=== PATIENT | male | born 1965 | race Hispanic/Latino ===

== ENCOUNTER 2021-03-23 16:40 | Emergency (ER) | payer SELFPAY ==
[~2021-03-23] VITALS: Ht 162.6 cm; Wt 77.1 kg
[2021-03-23 17:30] LABS: APPEARANCE,URINE Clear (CLEAR); BILIRUBIN,URINE Negative (NEGATIVE); COLOR,URINE Yellow (YELLOW); GLUCOSE, URINE (UA) 250 mg/dL (NEGATIVE); KETONES,URINE Negative (NEGATIVE); LEUKOCYTE ESTERASE ,URINE Negative (NEGATIVE); NITRATE,URINE Negative (NEGATIVE); OCCULT BLOOD,URINE Negative (NEGATIVE); PROTEIN,URINE POS 2+ mg/dL (NEGATIVE)
[2021-03-23] MEDS ORDERED: PANTOPRAZOLE 40 MG/VIAL IVP ONE (17:30)
[2021-03-23] MEDS ORDERED: 0.9%NACL 1000ML 1,000 ML IV ONE (17:30)
[2021-03-23] MEDS ORDERED: ONDANSETRON 4MG INJ IVP ONE (17:30)
[2021-03-23 17:31] LABS: BASOPHILS % (AUTO) 0.6 % (0.0-5.0); EOSINOPHILS % (AUTO) 1.1 % (0.0-8.0); HEMATOCRIT 41.1 % (42-54); LYMPHOCYTES % (AUTO) 10.6 % (21.0-51.0); MEAN CORPUSCULAR HEMOGLOBIN 30.2 pg (27.0-33.0); MEAN CORPUSCULAR HGB CONC 35.5 g/dL (32.0-36.0); MEAN CORPUSCULAR VOLUME 85.1 fL (79-99); NEUTROPHILS % (AUTO) 77.1 % (40.0-77.0); PLATELET COUNT (AUTO) 172 K/uL (130-400); RED BLOOD CELL COUNT(AUTO) 4.83 MIL/uL (4.50-6.20); RED CELL DISTRIBUTION WIDTH 12.2 % (11.0-15.5); WHITE BLOOD COUNT (AUTO) 10.6 K/uL (4.8-10.8)
[2021-03-23 17:44] LABS: ALBUMIN 3.9 g/dL (3.5-5.0); BILIRUBIN,TOTAL 1.1 mg/dL (0.2-1.0); CREATININE 1.2 mg/dL (0.5-1.5)
[2021-03-23 17:50] LABS: BACTERIA,URINE None Seen /HPF (None Seen); RBC,URINE None Seen /HPF (0-1); SQUAMOUS EPITHELIAL CELL,UR 0-2 /HPF (0-2); WBC,URINE None Seen /HPF (0-1)
[2021-03-23] MEDS ORDERED: POTASSIUM BICARB/CIT AC 25 MEQ TABLET.EFF PO ONE (18:30)
[2021-03-23] MEDS ORDERED: METO5 PO (18:40)
[2021-03-23] MEDS ORDERED: ONDA4TAB10 PO (18:40)
[2021-03-23 18:57] VITALS: BP 168/88
== END 2021-03-23 18:59 | disposition home or self-care (01) ==
LOC: EDH 16:40
DX: K29.20 Alcoholic gastritis without bleeding (principal); E87.6 Hypokalemia; E86.9 Volume depletion, unspecified; E11.9 Type 2 diabetes mellitus without complications; I10 Essential (primary) hypertension; E78.00 Pure hypercholesterolemia, unspecified; Z79.899 Other long term (current) drug therapy; Z86.73 Personal history of transient ischemic attack (TIA), and cerebral infarction without residual deficits
CPT/HCPCS: 36415; 74018; 80053; 81001; 83690; 84484; 85025; 93005; 96361; 96374; 96375; 99285; C9113; J2405; J7030

== ENCOUNTER 2021-03-25 18:44 | Emergency (ER) | payer SELFPAY ==
[~2021-03-25] VITALS: Ht 162.6 cm; Wt 77.1 kg
[~2021-03-25 18:44] MED LIST: METO5 PO; ONDA4TAB10 PO
[2021-03-25 18:45] VITALS: BP 138/85
[2021-03-26] MEDS ORDERED: POTA20PA32 PO (11:44)
[2021-03-26] MEDS ORDERED: PANT40TA PO (11:44)
[2021-03-26] MEDS ORDERED: PROM12.513 PO (11:44)
== END 2021-03-25 20:26 | disposition left against medical advice (07) ==
LOC: EDH 18:44
DX: R11.10 Vomiting, unspecified (principal); Z53.21 Procedure and treatment not carried out due to patient leaving prior to being seen by health care provider

== ENCOUNTER 2021-03-26 08:45 | Emergency (ER) | payer SELFPAY ==
[~2021-03-26] VITALS: Ht 162.6 cm; Wt 79.4 kg
[2021-03-26] MEDS ORDERED: 0.9%NACL 1000ML 1,000 ML IV ONE ×2 (09:30→11:00)
[2021-03-26] MEDS ORDERED: ONDANSETRON 4MG INJ IVP ONE (09:30)
[2021-03-26] MEDS ORDERED: METOCLOPRAMIDE 10 MG/2 ML VIAL IVP ONE (09:30)
[2021-03-26 09:38] LABS: BASOPHILS % (AUTO) 0.5 % (0.0-5.0); EOSINOPHILS % (AUTO) 1.7 % (0.0-8.0); HEMATOCRIT 39.6 % (42-54); LYMPHOCYTES % (AUTO) 14.9 % (21.0-51.0); MEAN CORPUSCULAR HEMOGLOBIN 30.4 pg (27.0-33.0); MEAN CORPUSCULAR HGB CONC 35.4 g/dL (32.0-36.0); MEAN CORPUSCULAR VOLUME 86.1 fL (79-99); MONOCYTES % (AUTO) 8.6 % (3.0-13.0); NEUTROPHILS % (AUTO) 73.9 % (40.0-77.0); PLATELET COUNT (AUTO) 197 K/uL (130-400); RED CELL DISTRIBUTION WIDTH 12.1 % (11.0-15.5); WHITE BLOOD COUNT (AUTO) 9.9 K/uL (4.8-10.8)
[2021-03-26 09:50] LABS: ALBUMIN 3.5 g/dL (3.5-5.0); CREATININE 1.1 mg/dL (0.5-1.5)
[2021-03-26 09:55] LABS: BILIRUBIN,TOTAL 1.1 mg/dL (0.2-1.0); TOTAL PROTEIN, SERUM 7.1 g/dL (6.0-8.3)
[2021-03-26 09:57] LABS: POTASSIUM 2.9 mmol/L (3.5-5.1)
[2021-03-26] MEDS ORDERED: POTASSIUM BICARB/CIT AC 25 MEQ TABLET.EFF PO SCH (10:30)
[2021-03-26 10:57] LABS: APPEARANCE,URINE Clear (CLEAR); BILIRUBIN,URINE Negative (NEGATIVE); COLOR,URINE Yellow (YELLOW); GLUCOSE, URINE (UA) Negative (NEGATIVE); KETONES,URINE Negative (NEGATIVE); LEUKOCYTE ESTERASE ,URINE Trace (NEGATIVE); NITRATE,URINE Negative (NEGATIVE); OCCULT BLOOD,URINE Negative (NEGATIVE); PH,URINE 7.5 (5.0-8.0); PROTEIN,URINE POS 1+ mg/dL (NEGATIVE)
[2021-03-26 11:04] LABS: AMPHET/METH SCREEN,URINE NEGATIVE (NEGATIVE); BARBITURATE SCREEN, URINE NEGATIVE (NEGATIVE); BENZODIAZEPINES SCREEN,URINE NEGATIVE (NEGATIVE); CANNABINOID SCREEN,URINE NEGATIVE (NEGATIVE); COCAINE SCREEN,URINE NEGATIVE (NEGATIVE); OPIATE SCREEN,URINE NEGATIVE (NEGATIVE); PHENCYCLIDINE SCREEN,URINE NEGATIVE (NEGATIVE)
[2021-03-26 11:25] LABS: BACTERIA,URINE None Seen /HPF (None Seen); RBC,URINE 0-1 /HPF (0-1); SQUAMOUS EPITHELIAL CELL,UR 0-2 /HPF (0-2); WBC,URINE 0-1 /HPF (0-1)
[2021-03-26] MEDS ORDERED: PANT40TA PO (11:44)
[2021-03-26] MEDS ORDERED: PROM12.513 PO (11:44)
[2021-03-26] MEDS ORDERED: POTA20PA32 PO (11:44)
[2021-03-26 11:59] VITALS: BP 138/76
== END 2021-03-26 12:01 | disposition home or self-care (01) ==
LOC: EDH 08:45
DX: E87.6 Hypokalemia (principal); E86.9 Volume depletion, unspecified; R06.6 Hiccough; E11.9 Type 2 diabetes mellitus without complications; E78.00 Pure hypercholesterolemia, unspecified; I10 Essential (primary) hypertension; F10.20 Alcohol dependence, uncomplicated; Z86.73 Personal history of transient ischemic attack (TIA), and cerebral infarction without residual deficits
CPT/HCPCS: 36415; 80053; 80305; 81001; 83690; 84484; 85025; 93005; 96361; 96374; 96375; 99284; J2405; J2765; J7030

== ENCOUNTER 2024-05-03 15:08 | Emergency (ER) | payer OTHER ==
[~2024-05-03] VITALS: Ht 162.6 cm; Wt 81.6 kg
[~2024-05-03 15:08] MED LIST changes: +ONDA-243 PO; -ONDA4TAB10 PO; +PANT40TA PO; +POTA20PA32 PO; +PROM12.513 PO
--- NOTE | 2024-05-03 15:15 | ERN ---
ED Note History of Present Illness Stated Complaint: DYSURIA Chief Complaint: Painful Urination Time Seen by MD: 15:10 Dictation: PATIENT IS A 58-YEAR-OLD MALE HERE FROM [facility] WITH COMPLAINTS OF HAVING DYSURIA FOR ONE WEEK. HE STATES HE IS HAVING NO FEVER NO CHILLS NO NAUSEA VOMITING NO FLANK PAIN. DENIES ANY HISTORY OF PROSTATE ENLARGEMENT UTI OR STONES. HE STATES HE IS HERE VISITING A MOTHER HAS NO LOCAL DOCTOR [place]. Allergies: Coded Allergies: No Known Drug Allergies (Unverified Allergy, Unknown, 03/23/21) Home Meds Active Scripts Promethazine HCl (Promethazine HCl) 12.5 Mg Tablet, 12.5 MG PO TIDP, #20 TAB 0 Refills Prov:BELLA DOMINGO MD 03/26/21 Pantoprazole Sodium (Protonix) 40 Mg Tablet.dr, 40 MG PO DAILY, #10 TAB 0 Refills Prov:BELLA DOMINGO MD 03/26/21 Potassium Chloride (Potassium Chloride) 20 Meq Packet, 20 MEQ PO DAILY, #10 PKT 0 Refills Prov:BELLA DOMINGO MD 03/26/21 Metoclopramide HCl (Reglan) 5 Mg Tab, 5 MG PO TIDP PRN for ABDOMINAL PAIN, #20 TAB 0 Refills Prov:SARAI CARRANZA MD 03/23/21 Ondansetron (Ondansetron Odt) 4 Mg Tab.rapdis, 4 MG PO TIDP PRN for NAUSEA/VOMITING, #15 TAB 0 Refills Prov:SARAI CARRANZA MD 03/23/21 Past Medical History Past Medical History: Alcoholism, Diabetes-Type II, High Cholesterol, Hypertension, Stroke, Other Additional Past Medical Hx: STROKE Surgical History: Other Surgical History Other: HX OF COLOSTOMY. COLON RESECTION Social History: Other RN Note Reviewed/Agreed w/PFSH: Yes Review of System Dictation CONSTITUTIONAL: NEGATIVE EXCEPT FOR HPI HEAD/FACE: NEGATIVE EXCEPT FOR HPI EENT: NEGATIVE EXCEPT FOR HPI RESPIRATORY: NEGATIVE EXCEPT FOR HPI GASTROINTESTINAL/ABDOMINAL: NEGATIVE EXCEPT FOR HPI GENITOURINARY: NEGATIVE EXCEPT FOR HPI DYSURIA MUSCULOSKELETAL: NEGATIVE EXCEPT FOR HPI INTEGUMENTARY: NEGATIVE EXCEPT FOR HPI NEUROLOGICAL/PSYCH: NEGATIVE EXCEPT FOR HPI HEMATOLOGIC/LYMPHATIC: NEGATIVE EXCEPT FOR HPI ALL SYSTEMS NEGATIVE, EXCEPT NOTED ABOVE. 13 POINT REVIEW OF SYSTEMS ASSESSED AND ALL NEGATIVE EXCEPT FOR ABOVE. Initial Vital Sign VS Vital Signs Date Time Temp Pulse Resp B/P (MAP) Pulse Ox O2 Delivery O2 Flow Rate FiO2 05/03/24 15:09 97.9 62 16 126/69 97 Room Air 0 05/03/24 15:52 21 Physical Exam Dictation VITAL SIGNS REVIEWED GENERAL APPEARANCE: ALERT, ORIENTED X 3, MILD ACUTE DISTRESS, WELL DEVELOPED, NOURISHED. HEAD AND FACE: NON-TRAUMATIC. EYES: PERRL, PINK CONJUNCTIVAS, EYELID NO TRAUMA, ANTERIOR CHAMBER WITH ARCUS SENILIS. EARS: PINNAS INTACT AND NO SIGNS OF TRAUMA OR ERYTHEMA EAR CANALS CLEAR AND NO DISCHARGE TM NO ERYTHEMA NOSE: NO DISCHARGE, NO BLEEDING. OROPHARYNX: MOUTH NORMAL, TONGUE PINK, PHARYNX CLEAR,NO ERYTHEMA, TONSILS NO EXUDATES, NO ABSCESSES NOTED, MUCOUS MEMBRANE MOIST NECK: SUPPLE, NON-TENDER, NO THYROMEGALY, NO MASSES, NO JVD, NO BRUITS BREAST:DEFERRED CHEST:NO TENDERNESS, NO CREPITUS, NO PARADOXICAL MOVEMENT, NO RETRACTIONS LUNGS:CLEAR, WELL-VENTILATED, SYMMETRIC, NO RALES, NO WHEEZING, NO RHONCHI, NO STRIDOR, GOOD BREATH SOUNDS BILATERALLY HEART: REGULAR RATE, REGULAR RHYTHM, NO MURMUR, NO GALLOPS VASCULAR: NO PERIPHERAL EDEMA, ABDOMEN: SOFT, POSITIVE BOWEL SOUNDS, NONDISTENDED, NO GUARDING, NONTENDER, NO REBOUND, NO MASSES NO HEPATOMEGALY, NO SPLENOMEGALY, NO BACA'S SIGN, NO HERNIAS. NEGATIVE CVAT RECTAL: DEFERRED GENITAL: DEFERRED NEUROLOGICAL: NORMAL SPEECH, MOTOR FUNCTION INTACT, SENSORY FUNCTION INTACT MUSCULOSKELETAL: NECK NONTENDER, FULL RANGE OF MOTION, BACK NONTENDER, FULL RANGE OF MOTION, EXTREMITIES: NONTENDER, FULL RANGE OF MOTION SKIN: COLOR PINK, DRY, NO TURGOR, NO RASH, NO LACERATIONS, NO ABRASIONS, NO CONTUSIONS. LYMPHATIC: DEFERRED Results (Laboratory/Radiology) Laboratory/Radiology Laboratory Tests Test 05/03/24 15:19 Urine Color LIGHT-YELLOW (YELLOW) Urine Appearance CLEAR (CLEAR) Urine pH 6.0 (5.0-8.0) Urine Specific [place] 1.008 (1.001-1.031) Urine Protein 10 mg/dL (NEGATIVE) H Urine Glucose (UA) NEGATIVE mg/dL (NEGATIVE) Urine Ketones NEGATIVE mg/dL (NEGATIVE) Urine Occult Blood NEGATIVE (NEGATIVE) Urine Nitrate NEGATIVE (NEGATIVE) Urine Bilirubin NEGATIVE mg/dL (NEGATIVE) Urine Urobilinogen 0.2 mg/dL (0.2-1.0) Urine Leukocyte Esterase NEGATIVE Terry/uL Urine RBC None /HPF (0-1) Urine WBC 0-1 /HPF (0-1) Urine Bacteria None /HPF (None Seen) Labs Reviewed?: Yes ED Course ED Course Orders Procedure Category Date Status Time Urinalysis Profile LAB 05/03/24 Complete 15:12 Phenazopyridine Hcl PHA 05/03/24 Complete 200 Mg Tab (Pyridium 15:30 Ibuprofen 600 Mg PHA 05/03/24 Complete Tablet (Motrin) 15:30 Current Medications Medications (Trade) Dose Ordered Sig/Radha Route PRN Reason Start Time Stop Time Status Last Admin Dose Admin Ibuprofen (moTRIN) 600 mg ONCE ONCE PO 05/03/24 15:30 05/03/24 15:31 DC 05/03/24 15:37 Phenazopyridine HCl (PYRIdium HCL 200 MG TAB) 200 mg ONCE ONCE PO 05/03/24 15:30 05/03/24 15:31 DC 05/03/24 15:37 Vital Signs Date Time Temp Pulse Resp B/P (MAP) Pulse Ox O2 Delivery O2 Flow Rate FiO2 05/03/24 15:52 97.9 62 16 126/69 97 Room Air* 0 21 05/03/24 15:09 97.9 62 16 126/69 97 Room Air 0 SIXTEEN 10, NO PAIN AT THIS TIME. PATIENT DISCHARGED HOME WITH DYSURIA TOLD TO SEE HIS PRIMARY CARE DOCTOR IN [place]. Medical Decision Making MDM MEDICAL DISCHARGE MAKING BASED ON URINALYSIS. PATIENT DISCHARGED HOME WITH IBUPROFEN AND PYRIDIUM GIVEN A LIST OF LOCAL PRIMARY CARE DOCTORS FOLLOW UP IN THE NEXT 1-2 DAYS OR SEE HIS DOCTOR IN [facility] DX & DISP Disposition: Discharge Departure Impression: Primary Impression: Dysuria Condition: Stable Scripts Ibuprofen (Ibuprofen 800 mg Tab) 800 Mg Tab 800 MG PO Q8H PRN for fever or pain, #30 TAB 0 Refills Prov: JS VALDEZ [employer] 05/03/24 Phenazopyridine HCl (Pyridium) 200 Mg Tablet 1 TAB PO TID for urinary discomfort for 3 Days, #9 TAB 0 Refills Prov: JS VALDEZ [employer] 05/03/24 Additional Instructions: FOLLOW-UP WITH PRIMARY CARE PROVIDER IN 1 TO 2 DAYS. TAKE MEDICATIONS DIRECTED HERE IN THE EMERGENCY ROOM. OKAY TO CONTINUE HOME MEDICATIONS UNLESS OTHERWISE DISCUSSED DURING YOUR VISIT IN THE EMERGENCY ROOM TODAY. RETURN TO YOUR NEAREST EMERGENCY ROOM IF SYMPTOMS WORSEN OR IF THERE IS NO IMPROVEMENT. CALL 911 IF YOU NEED IMMEDIATE ASSISTANCE. TAKE TYLENOL OR MOTRIN [id number] NEEDED AND IF NO CONTRAINDICATIONS ARE PRESENT. INCREASE ORAL HYDRATION. A WOUND CULTURE OR URINE CULTURE WAS ORDERED HERE IN THE EMERGENCY ROOM DEPARTMENT PLEASE FOLLOW-UP WITH PRIMARY CARE PROVIDER AND ADVISE THEM TO GET REPEAT PORTS FROM OUR FACILITY. IF YOU HAD ANY ROGERS WRAP/SPLINTS THAT WERE APPLIED HERE, PLEASE DO NOT REMOVE THEM UNTIL YOU SEE YOUR PRIMARY CARE OR SPECIALTY. TAKE MEDICATIONS NEEDED FOR PAIN. INCREASE YOUR WATER INTAKE AND FOLLOW UP WITH ONE OF THE DOCTORS ON THE LIST PROVIDED YOU IN THE NEXT 1-2 DAYS IF YOU AND 10 TO STAY Referrals: NONE (PCP) Time of Disposition: 16:13 I have reviewed the case, and I agree with, Diagnosis and Plan JS VALDEZ NP May 03, 2024 15:15
[2024-05-03 15:28] LABS: APPEARANCE,URINE CLEAR (CLEAR); BILIRUBIN,URINE NEGATIVE (NEGATIVE); COLOR,URINE LIGHT-YELLOW (YELLOW); GLUCOSE, URINE (UA) NEGATIVE (NEGATIVE); KETONES,URINE NEGATIVE (NEGATIVE); LEUKOCYTE ESTERASE ,URINE NEGATIVE Leu/uL (NEGATIVE); NITRATE,URINE NEGATIVE (NEGATIVE); OCCULT BLOOD,URINE NEGATIVE (NEGATIVE); PROTEIN,URINE 10 mg/dL (NEGATIVE); UROBILINOGEN,URINE 0.2 mg/dL (0.2-1.0)
[2024-05-03 15:36] LABS: ADD UA MICROSCOPIC YES
[2024-05-03] MEDS: ibuPROFEN 600 MG TABLET PO ONE (15:37)
[2024-05-03] MEDS: PHENAZOpyridine HCL 200 MG TAB 200 MG TABLET PO ONE (15:37)
[2024-05-03 15:49] LABS: WBC,URINE 0-1 /HPF (0-1)
[2024-05-03 15:52] VITALS: BP 126/69; PULSE 62; RESP 16; TEMP 97.9; O2SAT 97
[2024-05-03] MEDS ORDERED: PHEN-776 PO (16:14)
[2024-05-03] MEDS ORDERED: IBUP-2077 PO (16:14)
== END 2024-05-03 16:35 | disposition home or self-care (01) ==
LOC: EDH 15:08
DX: R30.0 Dysuria (principal); E11.9 Type 2 diabetes mellitus without complications; E78.00 Pure hypercholesterolemia, unspecified; I10 Essential (primary) hypertension; Z79.899 Other long term (current) drug therapy; Z86.73 Personal history of transient ischemic attack (TIA), and cerebral infarction without residual deficits
CPT/HCPCS: 81001; 99283